=== PATIENT | female | born 1995 | race Caucasian/White ===

== ENCOUNTER 2017-08-01 14:29 | Emergency (ER) | payer OTHER ==
[2017-08-01 15:00] VITALS: TEMP 97.8
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
[2017-08-01 19:27] VITALS: O2SAT 98
== END 2017-08-01 17:29 | disposition home or self-care (01) ==
LOC: ER 14:29
DX: O47.03 False labor before 37 completed weeks of gestation, third trimester (principal); Z3A.00 Weeks of gestation of pregnancy not specified

== ENCOUNTER 2018-04-21 22:18 | Emergency (ER) | payer OTHER ==
[2018-04-21] MEDS ORDERED: SODIUM CHLORIDE 0.9% 1000ML 1,000 ML ONE (22:26)
[2018-04-21] MEDS ORDERED: SODIUM CHLORIDE 0.9% 1000ML 1,000 ML IVS ONE (22:32)
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
--- NOTE | 2018-04-21 23:26 | CT ---
EXAM DESCRIPTION: CT of the head without contrast CLINICAL HISTORY: AMS COMPARISON: None available TECHNIQUE: Axial CT of the head obtained from the skull apex to the skull base without contrast. FINDINGS: No acute intracranial hemorrhage identified. No mass, mass effect, shift of the midline, abnormal extra-axial fluid collection or CT evidence of acute ischemic change identified. The ventricular system is unremarkable. No acute abnormalities of the supratentorial white matter, basal ganglia, cerebellum, or brainstem. Mucosal thickening of the chest. Mastoid air cells are well aerated. No skull fracture identified. Visualized orbits and globes are unremarkable. Subcutaneous punctate hyperdensities in the anterior frontal soft tissues represent calcifications or radiopaque foreign bodies as history of frontal trauma. DLP:859.97 mGy-cm IMPRESSION: 1. No acute intracranial abnormality identified. This exam was performed according to our departmental dose-optimization program, which includes automated exposure control, adjustment of the mA and/or kV according to patient size and/or use of iterative reconstruction technique. Electronically signed by: Will Tanner 04/21/2018 11:24 PM CDT
[2018-04-22 02:29] VITALS: O2SAT 99
[2018-04-22 07:18] VITALS: BP 103/52; TEMP 98.2
== END 2018-04-22 07:05 | disposition home or self-care (01) ==
LOC: ER 22:18
DX: F10.129 Alcohol abuse with intoxication, unspecified (principal); R56.9 Unspecified convulsions; R41.82 Altered mental status, unspecified; Z88.0 Allergy status to penicillin
CPT/HCPCS: 36415; 70450; 80053; 80307; 80320; 80329; 81001; 85025; J2060; J7030

== ENCOUNTER 2018-11-19 03:55 | Emergency (ER) | payer OTHER ==
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
[2018-11-19 04:28] VITALS: BP 105/69; TEMP 98; O2SAT 99
== END 2018-11-19 04:27 | disposition left against medical advice (07) ==
LOC: ER 03:55
DX: T74.91XA Unspecified adult maltreatment, confirmed, initial encounter (principal); Y07.03 Male partner, perpetrator of maltreatment and neglect; Z53.29 Procedure and treatment not carried out because of patient's decision for other reasons; Z88.0 Allergy status to penicillin

== ENCOUNTER 2019-06-03 03:35 | Emergency (ER) | payer OTHER ==
--- NOTE | 2019-06-03 03:59 | ED.PDOC ---
History of Present Illness - General Chief Complaint: Neuro Symptoms/Deficits Stated Complaint: witnessed seizure Time Seen by Provider: 06/03/19 03:55 Source: EMS, other - ex-fiance - History of Present Illness Initial Comments: 24 yo female with PMH of seizure disorder, depression who is bib EMS from home for cc of seizures and altered mental status. Pt's ex-fiance at bedside who provides what little history we have about pt. He states around 2:30 am he received a phone call from the pt who sounded confused and intoxicated and she was moaning and asking for help. He went to her house quickly and door locked but looked inside and noted her on the couch and she began having full-body tonic-clonic seizure-like activity which he believes lasted maybe 3-5 minutes. EMS called and on scene pt reported had 2 separate seizure episodes full body tonic-clonic with reported LOC. Was given Ativan 2 mg IV with the first but then had another shortly later which resolved on its own and has had no further seizures since then. D-stick 90, remainder of vitals stable. Pt's ex-fiance states she has been having similar seizures for 2-3 years now that are similar to these episodes. They typically occur after she has been drinking alcohol but have also occurred after Nyquil and other medication usage. Last seizure was about 1 month ago. Apparently with all these seizures she has never seen a neurologist and never Rx'd seizure medications either. She also is reported to have hx of depression. Lazaro pt was reportedly out very late drinking alcohol with another mary, but no witnesses as to what she did exactly prior to 2:30 am or how much she drank. On arrival to ED here, pt is quite somnolent and only arousable to vigorous sternal rub. Vitals wnl. Allergies/Adverse Reactions: Allergies Penicillins Allergy (Verified 06/03/19 03:58) Home Medications: Ambulatory Orders FLUoxetine HCL [Prozac] 10 mg PO DAILY 06/03/19 Review of Systems - Review of Systems Review of Systems: 06/03/19 04:24 as per HPI All other Systems: Reviewed and Negative Past Medical History (General) - Patient Medical History Hx Seizures: No Hx Stroke: No Hx Dementia: No Hx Asthma: No Hx of COPD: No Hx Cardiac Disorders: No Hx Congestive Heart Failure: No Hx Pacemaker: No Hx Hypertension: No Hx Thyroid Disease: No Hx Diabetes: No Hx Gastroesophageal Reflux: No Hx Renal Disease: Yes - Kidney Stones Hx Cancer: No Hx of HIV: No Hx Hepatitis C: No Hx MRSA: No Surgical History: noncontributory - Vaccination History Hx Tetanus, Diphtheria Vaccination: No Hx Influenza Vaccination: - unknown Hx Pneumococcal Vaccination: - unknown - Social History Hx Tobacco Use: No Hx Chewing Tobacco Use: No Hx Alcohol Use: No Hx Substance Use: No Hx Substance Use Treatment: No Hx Depression: No Hx Physical Abuse: No Hx Emotional Abuse: No Hx Suspected Abuse: No - Female History Patient : No Expected Date of Delivery:: 09/14/17 Family Medical History - Family History Mother Family History: Unknown Living Status: Still Living Hx Family Asthma: No Hx Family Congestive Heart Failure: No Hx Family Hypertension: No Hx Family Stroke: No Hx Cardiac Disease: No Hx Family Diabetes: No Hx Family Cancer: No Hx Family;Other: thyroid Father Living Status: Still Living Hx Family Asthma: Yes Hx Family Congestive Heart Failure: No Hx Family Hypertension: No Hx Family Stroke: No Hx Cardiac Disease: No Hx Family Diabetes: No Hx Family Cancer: No Physical Exam - Physical Exam General Appearance: No apparent distress, Lethargic ENT Exam: normal ENT inspection Neck: non-tender, full range of motion, supple, normal inspection Respiratory: lungs clear, normal breath sounds, no respiratory distress Cardiovascular/Chest: normal peripheral pulses, regular rate, rhythm, no edema, no gallop, no murmur Gastrointestinal/Abdominal: non tender, soft, no organomegaly Back Exam: normal inspection, no CVA tenderness Extremities Exam: non-tender, normal range of motion, no evidence of injury Mental Status: lethargic, unresponsive - 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 I suspect her current state of lethargy, decreased arousal is 2/2 Ativan 2 mg IV given by EMS and also likely from postictal state as well. -stat labs, CXR, EKG, CT head, tox screens, marcus placement, 1 NS bolus -D stick 81 here -initial GCS 9, vitals wnl, maintaining airway and normal spontaneous RR and O2 sats, will monitor very closely and defer intubation as airway/breathing intact and do not want to mask possible underlying seizure activity 06/03/19 04:40 -Pt resisting/localizing pain with marcus placement per nursing staff, remains stable, obtaining CT head now -clear yellow urine draining into marcus bag -CXR no acute processes per my read 06/03/19 04:58 -CT head grossly wo acute abnormalities. Pt with slowly improving mental status/responsiveness to noxious stimuli. 06/03/19 05:29 -Blood alcohol is 113 mg/dL (0.113% ERNST). Remainder of labs including tox screen, serum acetaminophen/salicylate levels, CBC/CMP, UA, are all unremarkable. Pt has remained stable, still difficult to arouse but vitals wnl. -discussed at length with pt's ex-fiance at bedside and advised that we transfer her to higher LOC for neurology consultation given several seizure episodes today and unclear etiology. Will try [facility] in [place]. Will give loading dose of Keppra 1000 mg IV. 06/03/19 05:38 -Spoke with ED physician at [facility] who accepts pt for ED to ED transfer, will go via ground EMS. Mendoza Villagran MD Billing #[id number] - Results/Orders Results/Orders: Laboratory Tests 06/03/19 06/03/19 06/03/19 03:53 04:00 04:14 WBC 5.0 RBC 4.34 Hgb 12.5 Hct 36.5 MCV 84.1 MCH 28.8 MCHC 34.3 RDW 13.2 Plt Count 171 MPV 9.9 Absolute Neuts (auto) 2.60 Absolute Lymphs (auto) 2.00 Absolute Monos (auto) 0.30 Absolute Eos (auto) 0.10 Absolute Basos (auto) 0.00 Neutrophils % 50.7 Lymphocytes % 40.7 Monocytes % 6.7 Eosinophils % 1.4 Basophils % 0.5 Sodium Potassium Chloride Carbon Dioxide Anion Gap BUN Creatinine BUN/Creatinine Ratio POC Glucose Random Glucose Serum Osmolality Calcium Total Bilirubin AST ALT Alkaline Phosphatase Serum Total Protein Albumin Globulin Albumin/Globulin Ratio Urine Color Urine Appearance Urine pH Ur Specific [place] Urine Protein Urine Glucose (UA) Urine Ketones Urine Blood Urine Nitrite Urine Bilirubin Urine Urobilinogen Ur Leukocyte Esterase Urine RBC Urine WBC Ur Epithelial Cells Urine Bacteria Urine HCG, Qual Salicylates < 4.0 Urine Opiates Screen Acetaminophen < 10.0 L Urine Barbiturates Ur Phencyclidine Scrn U Amphetamin/Meth Scrn U Benzodiazepines Scrn U Cocaine Metab Screen U Cannabinoids Screen Ethyl Alcohol 113.10 H* 06/03/19 06/03/19 06/03/19 04:16 04:53 04:53 WBC RBC Hgb Hct MCV MCH MCHC RDW Plt Count MPV Absolute Neuts (auto) Absolute Lymphs (auto) Absolute Monos (auto) Absolute Eos (auto) Absolute Basos (auto) Neutrophils % Lymphocytes % Monocytes % Eosinophils % Basophils % Sodium 140 Potassium 3.6 Chloride 110 Carbon Dioxide 18 L Anion Gap 15.6 BUN 13 Creatinine 0.76 BUN/Creatinine Ratio 17.1 POC Glucose 81 Random Glucose 83 Serum Osmolality 278.7 Calcium 8.9 Total Bilirubin 0.7 AST 17 ALT 13 Alkaline Phosphatase 58 Serum Total Protein 6.9 Albumin 4.1 Globulin 2.8 Albumin/Globulin Ratio 1.5 Urine Color Urine Appearance Urine pH Ur Specific [place] Urine Protein Urine Glucose (UA) Urine Ketones Urine Blood Urine Nitrite Urine Bilirubin Urine Urobilinogen Ur Leukocyte Esterase Urine RBC Urine WBC Ur Epithelial Cells Urine Bacteria Urine HCG, Qual Negative Salicylates Urine Opiates Screen Acetaminophen Urine Barbiturates Ur Phencyclidine Scrn U Amphetamin/Meth Scrn U Benzodiazepines Scrn U Cocaine Metab Screen U Cannabinoids Screen Ethyl Alcohol 06/03/19 06/03/19 04:53 04:58 WBC RBC Hgb Hct MCV MCH MCHC RDW Plt Count MPV Absolute Neuts (auto) Absolute Lymphs (auto) Absolute Monos (auto) Absolute Eos (auto) Absolute Basos (auto) Neutrophils % Lymphocytes % Monocytes % Eosinophils % Basophils % Sodium Potassium Chloride Carbon Dioxide Anion Gap BUN Creatinine BUN/Creatinine Ratio POC Glucose Random Glucose Serum Osmolality Calcium Total Bilirubin AST ALT Alkaline Phosphatase Serum Total Protein Albumin Globulin Albumin/Globulin Ratio Urine Color Yellow Urine Appearance Clear Urine pH 5.5 Ur Specific [place] <= 1.005 Urine Protein Negative Urine Glucose (UA) Negative Urine Ketones Negative Urine Blood Negative Urine Nitrite Negative Urine Bilirubin Negative Urine Urobilinogen 0.2 Ur Leukocyte Esterase Negative Urine RBC 0 Urine WBC 0 Ur Epithelial Cells 10-20 Urine Bacteria 0 Urine HCG, Qual Salicylates Urine Opiates Screen Negative Acetaminophen Urine Barbiturates Negative Ur Phencyclidine Scrn Negative U Amphetamin/Meth Scrn Negative U Benzodiazepines Scrn Negative U Cocaine Metab Screen Negative U Cannabinoids Screen Negative Ethyl Alcohol - EKG/XRAY/CT EKG: Sinus - normal sinus rhythm, HR 75, no ST elevations or q waves, axis normal, intervals normal, no prior EKG for comparison. CT Ordered: Yes - CT head no acute processes Departure - Departure Clinical Impression: Seizure disorder Time of Disposition: 05:40 Disposition: Transfer to Hospital Departure Forms: ED Discharge - Pt. Copy, Patient Portal Self Enrollment Referrals: Elizabeth Rios NP [Primary Care Provider] - 1-2 Weeks Home Medications: Ambulatory Orders FLUoxetine HCL [Prozac] 10 mg PO DAILY 06/03/19 Transfer to Outside Facility - Transfer Information Decision to Transfer Date: 06/03/19 Decision to Transfer Time: 05:41 Reason for Transfer: required specialist not available - neurology Accepting Provider:: Dr. Ann Accepting Facility: [facility]
[2019-06-03] MEDS ORDERED: SODIUM CHLORIDE 0.9% 1000ML 1,000 ML IVS ONE ×2 (04:13→05:51)
--- NOTE | 2019-06-03 05:00 | RAD ---
Clinical History : seizures , MAIN Exam : Portable AP view of the chest 06/03/2019 3:57 AM MACHINE SHOP INSPECTOR Comparisons : none Findings : The lungs are clear without focal consolidation or pleural effusion. The heart is normal in size. The mediastinal contours are normal in appearance. The thoracic spine is age appropriate. The shoulders are unremarkable. Limited evaluation of the upper abdomen demonstrates no gross abnormalities. Impression: No acute cardiopulmonary disease Electronically signed by: Chelsie Muller MD 06/03/2019 4:36 AM MACHINE SHOP INSPECTOR
--- NOTE | 2019-06-03 05:25 | CT ---
CLINICAL HISTORY: reported seizures, unresponsive COMPARISON: None. TECHNIQUE: CT HEAD WITHOUT IV CONTRAST on 06/03/2019 4:16 AM GENERAL ASSIGNMENT REPORTER This exam was performed according to our departmental dose-optimization program, which includes automated exposure control, adjustment of the mA and/or kV according to patient size and/or use of iterative reconstruction technique. FINDINGS: There is no acute hemorrhage, mass effect or midline shift. Carter-white differentiation is preserved. There is no hydrocephalus. There is no significant volume loss for age. The calvarium is intact. Orbits and globes are unremarkable. The paranasal sinuses are clear. Mastoid air cells are clear. IMPRESSION: No acute intracranial findings. Electronically signed by: Manuelito Conner MD 06/03/2019 5:24 AM GENERAL ASSIGNMENT REPORTER
[2019-06-03] MEDS ORDERED: levETIRAcetam INJ 1,000 MG in SODIUM CHLORIDE 0.9% 100ML 100 ML IVPB ONE (05:27)
[2019-06-03] MEDS ORDERED: levETIRAcetam INJ 100 MG/ML VIAL IVPB ONE (05:39)
[2019-06-03] MEDS ORDERED: SODIUM CHLORIDE 0.9% 100ML 100 ML IVPB ONE (05:40)
[2019-06-03 05:56] VITALS: TEMP 97.8; O2SAT 97
[2019-06-03 06:09] VITALS: BP 102/72
== END 2019-06-03 06:14 | disposition short-term general hospital (02) ==
LOC: ER 03:35
DX: G40.909 Epilepsy, unspecified, not intractable, without status epilepticus (principal); F32.9 Major depressive disorder, single episode, unspecified; Z79.899 Other long term (current) drug therapy; Z88.0 Allergy status to penicillin
CPT/HCPCS: 70450; 71045; 80053; 80307; 80320; 80329; 81001; 81025; 82948; 85025; J7030; J7050

== ENCOUNTER 2019-06-24 10:32 | Emergency (ER) | payer OTHER ==
[2019-06-24] MEDS ORDERED: SODIUM CHLORIDE 0.9% (FLUSH) 10 ML SYG IV PRN (10:48)
[2019-06-24] MEDS ORDERED: SODIUM CHLORIDE 0.9% 1000ML 1,000 ML IVS PRN (10:48)
[2019-06-24 10:51] VITALS: BP 120/92; TEMP 98.2; O2SAT 100
--- NOTE | 2019-06-24 11:09 | ED.PDOC ---
History of Present Illness - General Chief Complaint: Neuro Symptoms/Deficits Stated Complaint: Seizure Time Seen by Provider: 06/24/19 10:43 - History of Present Illness Initial Comments: Pt brought by the EMS with seizure , pt was given Ativan in the ambulance while having seizure , pt is having seizure since 2-3 years , recently admitted in the [facility] and was after complete work up she was diagnosed with psychoigenic seizure , today at work she also started having seizure and was brought by EMS here . Denies for any sob or chest pain or fever or chills Improving Factors: nothing Worsening Factors: nothing Associated Symptoms: seizure Allergies/Adverse Reactions: Allergies Penicillins Allergy (Verified 06/24/19 10:46) Home Medications: Ambulatory Orders RX: FLUoxetine HCL [Prozac] 10 mg PO DAILY 06/03/19 Review of Systems - Review of Systems Constitutional: States: no symptoms reported EENTM: States: no symptoms reported Respiratory: States: no symptoms reported Cardiology: States: no symptoms reported Gastrointestinal/Abdominal: States: no symptoms reported Genitourinary: States: no symptoms reported Musculoskeletal: States: no symptoms reported Skin: States: no symptoms reported Neurological: States: see HPI Endocrine: States: no symptoms reported Hematologic/Lymphatic: States: no symptoms reported Past Medical History (General) - Patient Medical History Hx Seizures: Yes Hx Stroke: No Hx Dementia: No Hx Asthma: No Hx of COPD: No Hx Cardiac Disorders: No Hx Congestive Heart Failure: No Hx Pacemaker: No Hx Hypertension: No Hx Thyroid Disease: No Hx Diabetes: No Hx Gastroesophageal Reflux: No Hx Renal Disease: Yes - Kidney Stones Hx Cancer: No Hx of HIV: No Hx Hepatitis C: No Hx MRSA: No Surgical History: tonsillectomy, other - Vaccination History Hx Tetanus, Diphtheria Vaccination: No Hx Influenza Vaccination: Yes - 2019 Hx Pneumococcal Vaccination: No - Social History Hx Tobacco Use: No Hx Chewing Tobacco Use: No Hx Alcohol Use: Yes - Occasional, but none in the past few months Hx Substance Use: No Hx Substance Use Treatment: No Hx Depression: No Hx Physical Abuse: No Hx Emotional Abuse: No Hx Suspected Abuse: No - Female History Patient is a Female of Child Bearing Age (10 -59 yrs old): Yes Patient : No Expected Date of Delivery:: 09/14/17 Family Medical History - Family History Mother Family History: Unknown Living Status: Still Living Hx Family Asthma: No Hx Family Congestive Heart Failure: No Hx Family Hypertension: No Hx Family Stroke: No Hx Cardiac Disease: No Hx Family Diabetes: No Hx Family Cancer: No Hx Family;Other: thyroid Father Living Status: Still Living Hx Family Asthma: Yes Hx Family Congestive Heart Failure: No Hx Family Hypertension: No Hx Family Stroke: No Hx Cardiac Disease: No Hx Family Diabetes: No Hx Family Cancer: No Physical Exam - Physical Exam General Appearance: Comfortable, No apparent distress, Well Developed, Well Groomed, Well Nourished Eye Exam: bilateral normal Ears, Nose, Throat: hearing grossly normal Neck: non-tender, full range of motion, supple Respiratory: chest non-tender, lungs clear, normal breath sounds, no respiratory distress, no accessory muscle use Cardiovascular/Chest: regular rate, rhythm, no edema, no gallop Back Exam: normal inspection, no CVA tenderness Extremity: normal range of motion, non-tender, normal inspection Neurologic: no motor/sensory deficits, alert, normal mood/affect, oriented x 3 Skin Exam: normal color Lymphatic: no adenopathy Progress - Progress Progress: 06/24/19 11:10 Pt refused for any labs and CT scan - EKG/XRAY/CT EKG: Sinus, no ST T wave changes Departure - Departure Clinical Impression: Seizure Disposition: Left Against Medical Advice Condition: Good Departure Forms: ED Discharge - Pt. Copy, Patient Portal Self Enrollment Referrals: Elizabeth Rios NP [Primary Care Provider] - 1-2 Weeks Home Medications: Ambulatory Orders RX: FLUoxetine HCL [Prozac] 10 mg PO DAILY 06/03/19
== END 2019-06-24 11:28 | disposition left against medical advice (07) ==
LOC: ER 10:32
DX: R56.9 Unspecified convulsions (principal); Z53.29 Procedure and treatment not carried out because of patient's decision for other reasons; Z79.899 Other long term (current) drug therapy; Z88.0 Allergy status to penicillin
CPT/HCPCS: 93005; J7030

== ENCOUNTER 2019-12-02 01:00 | Emergency (ER) | payer OTHER ==
[2019-12-02] MEDS ORDERED: SODIUM CHLORIDE 0.9% 1000ML 1,000 ML IVS ONE (01:17)
--- NOTE | 2019-12-02 01:21 | ED.PDOC ---
History of Present Illness - General Time Seen by Provider: 12/02/19 01:11 Additional Information: Patient is a 24-year-old female who presents via EMS with chief complaint of seizure. Patient is postictal and is unable to give any history, history is per the boyfriend who is with patient. Patient was out partying with friends and was drinking alcohol when the seizure came on. Boyfriend was not with patient at the time of the seizure but he has witnessed previous seizures in the past. Boyfriend indicates patient was recently seen here at this hospital for seizures was transferred to [place] and spent a week there and then was subsequently transferred to [facility] for further advanced neurologic testing. He indicates patient was diagnosed with "nonepileptic seizures". He indicates that whenever patient received antiseizure medication that her seizures became worse and she was subsequently told that she should not receive seizure medications. History is otherwise unknown. - History of Present Illness Allergies/Adverse Reactions: Allergies Penicillins Allergy (Verified 06/24/19 10:46) Home Medications: Ambulatory Orders FLUoxetine HCL [Prozac] 10 mg PO DAILY 06/03/19 Review of Systems - Review of Systems Unable to Obtain Due To: condition Past Medical History (General) - Patient Medical History Hx Seizures: Yes Hx Stroke: No Hx Dementia: No Hx Asthma: No Hx of COPD: No Hx Cardiac Disorders: No Hx Congestive Heart Failure: No Hx Pacemaker: No Hx Hypertension: No Hx Thyroid Disease: No Hx Diabetes: No Hx Gastroesophageal Reflux: No Hx Renal Disease: Yes - Kidney Stones Hx Cancer: No Hx of HIV: No Hx Hepatitis C: No Hx MRSA: No - Vaccination History Hx Tetanus, Diphtheria Vaccination: No Hx Influenza Vaccination: Yes - 2019 Hx Pneumococcal Vaccination: No - Social History Hx Tobacco Use: No Hx Chewing Tobacco Use: No Hx Alcohol Use: Yes - Occasional, but none in the past few months Hx Substance Use: No Hx Substance Use Treatment: No Hx Depression: No Hx Physical Abuse: No Hx Emotional Abuse: No Hx Suspected Abuse: No - Female History Patient : No Expected Date of Delivery:: 09/14/17 Family Medical History - Family History Mother Family History: Unknown Living Status: Still Living Hx Family Asthma: No Hx Family Congestive Heart Failure: No Hx Family Hypertension: No Hx Family Stroke: No Hx Cardiac Disease: No Hx Family Diabetes: No Hx Family Cancer: No Hx Family;Other: thyroid Father Living Status: Still Living Hx Family Asthma: Yes Hx Family Congestive Heart Failure: No Hx Family Hypertension: No Hx Family Stroke: No Hx Cardiac Disease: No Hx Family Diabetes: No Hx Family Cancer: No Physical Exam - Physical Exam General Appearance: Well Developed, Well Nourished, Other - Patient is sleeping, obtunded, post ictal. Neck: normal inspection, trachea midline Respiratory: lungs clear, normal breath sounds, no respiratory distress, no accessory muscle use Cardiovascular/Chest: regular rate, rhythm, no edema, no gallop, no murmur Peripheral Pulses: radial,right: 2+, radial,left: 2+ Gastrointestinal/Abdominal: normal bowel sounds, non tender, soft, no organomegaly Back Exam: normal inspection, no CVA tenderness Extremities Exam: no evidence of injury Mental Status: unresponsive, other - Patient does not open her eyes to noxious stimulus. Patient makes no sounds to noxious stimuli and she localizes pain. Skin Exam: normal color, warm/dry Progress - Progress Progress: 12/02/19 01:24 Differential diagnosis includes but is not limited to alcohol intoxication, pseudoseizure, seizure, electrolyte disorder. 12/02/19 03:46 Patient's labs are unremarkable with the exception of her blood alcohol level which is considerably elevated. Patient is still asleep with difficulty waking but she has purposeful movement with localization of pain with attempts to arouse her. We have been unable to perform a head CT because the machine is down but I have low clinical suspicion for intracranial injury. Will give patient another liter of fluid and allow her to sleep a bit longer and reassess. Clinically I suspect that once the alcohol has metabolized out of patient system she will arouse and be eligible for discharge home under the care of her boyfriend who is here now with her. 12/02/19 06:45 Patient reassessed. As anticipated, patient is now awake and alert after several hours of sleep and metabolism of her alcohol. I discussed with patient need to reduce her alcohol consumption in the setting of seizure disorder. Vital signs stable, patient is NAD and looks clinically well and I believe is safe for discharge with outpatient follow-up. Follow-up instructions, discharge instructions and return to ED precautions discussed with patient. Patient voices understanding and willingness to comply with instructions. All laboratory and radiographic results have been discussed with the patient, and all questions answered. Patient is happy with plan. - EKG/XRAY/CT Comments: EKG: Normal sinus rhythm, rate 93, normal axis, normal QRS, normal ST segme Departure - Departure Clinical Impression: Alcohol use with intoxication, Seizure Time of Disposition: 06:47 Disposition: Discharge to Home or Self Care Condition: Fair Instructions: Seizures, Adult (DC), Effects of Alcohol on Your Health Referrals: Elizabeth Riso NP [Primary Care Provider] - 1 Week Home Medications: Ambulatory Orders FLUoxetine HCL [Prozac] 10 mg PO DAILY 06/03/19
[2019-12-02 06:45] VITALS: BP 100/73; TEMP 97.4; O2SAT 100
== END 2019-12-02 06:56 | disposition home or self-care (01) ==
LOC: ER 01:00
DX: F10.129 Alcohol abuse with intoxication, unspecified (principal); R56.9 Unspecified convulsions
CPT/HCPCS: 36415; 80053; 80307; 80320; 81001; 81025; 85025; 93005; J7030